=== PATIENT | male | born 1945 | race African-American/Black ===

== ENCOUNTER 2017-03-09 07:25 | Emergency (ER) | payer MEDICARE, MEDICAID ==
[~2017-03-09] VITALS: Ht 177.8 cm; Wt 75.0 kg
[~2017-03-09 07:25] MED LIST: ADALAT CC30 MG OR; AMOXICILLIN/CL875 MG PO; AMOXICILLIN500 MG PO; ATENOLOL25 MG PO; ATENOLOL50 MG PO; AUGMENTIN875 MG OR; CIPRO500 MG OR; COLACE100 MG PO; FLUARIX QUADRIV1 INJ IM; HYDROCHLORO25 MG/TAB PO; HYDROCHLOROT12.5 MG PO; HYDROCHLOROT25 MG PO; HYDROCHLOROTH12.5 M1 PO; LASIX20 MG OR; LISINOP/HCTZ1 TA1 PO; LOSARTAN POT50 MG PO; NIFEDIPINE ER PO; NIFEDIPINE ER90 MG OR; NIFEDIPINE ER90 MG PO; PRILOSEC20 MG PO; PRILOSEC40 MG PO; PROCARDIA XL90 MG OR; SIMETHICONE80 M2 PO; VALTREX1 GM PO
[2017-03-09 07:30] VITALS: BP 150/78
[2017-03-09] MEDS ORDERED: PATANOL0.1 % OS (07:56)
[2017-03-09] MEDS ORDERED: GENTAMICIN15 ML/BTL OS (07:56)
[2017-03-09] MEDS ORDERED: (None)3.5 GM OS (07:56)
== END 2017-03-09 08:06 | disposition home or self-care (01) ==
LOC: ED 07:25
DX: H01.005 Unspecified blepharitis left lower eyelid (principal); H01.004 Unspecified blepharitis left upper eyelid; I10 Essential (primary) hypertension

== ENCOUNTER 2018-11-27 15:27 | Emergency (ER) | payer MEDICARE, MEDICAID ==
[~2018-11-27] VITALS: Ht 177.8 cm; Wt 77.2 kg
[~2018-11-27 15:27] MED LIST changes: +(None)3.5 GM OS; +GENTAMICIN15 ML/BTL OS; +PATANOL0.1 % OS
[2018-11-27] MEDS ORDERED: DOXAZOSIN4 MG PO (15:39)
[2018-11-27] MEDS ORDERED: HYDROCHLOROT25 MG PO (15:39)
[2018-11-27] MEDS ORDERED: OFLOXACIN0.3 % OS (15:40)
[2018-11-27 15:41] VITALS: BP 138/78
== END 2018-11-27 15:41 | disposition home or self-care (01) ==
LOC: ED 15:27
DX: H10.9 Unspecified conjunctivitis (principal); I10 Essential (primary) hypertension

== ENCOUNTER 2019-01-24 11:39 | Emergency (ER) | payer MEDICARE, MEDICAID ==
[~2019-01-24] VITALS: Ht 177.8 cm; Wt 80.0 kg
[~2019-01-24 11:39] MED LIST changes: +DOXAZOSIN4 MG PO; +OFLOXACIN0.3 % OS
[2019-01-24 12:14] LABS: HEMATOCRIT 38.7 % (39.0-50.0); IMMATURE GRANULOCYTES 0.1 % (0.0-5.0); MEAN CELL VOLUME 99.7 fL CALC (80.0-100.0); MEAN CORPUSCULAR HGB 33.5 pG CALC (26.0-32.0); MEAN CORPUSCULAR HGB CONC 33.6 g/L CALC (32.0-36.0); NEUT# 2.53 thou/uL (1.82-7.42); RED BLOOD COUNT 3.88 mill/uL (4.70-6.10); RED CELL DISTRI WIDTH 13.1 % (11.5-15.5)
[2019-01-24 12:26] LABS: ALBUMIN 4.4 g/dL (3.2-5.0); ALKALINE PHOSPHATASE 98 u/l (38-126); ANION GAP 15 (6-22 (CALC)); BUN 8 mg/dL (8-23); BUN/CREATININE RATIO 9 (12-20 (CALC)); CARBON DIOXIDE 26 mmol/l (22-30); CHLORIDE 104 mmol/l (95-108); CREATININE 0.8 mg/dL (0.7-1.3); GFR > 60 ML/MIN (>=60 (CALC)); GFR FOR AFR.AMER. > 60 ML/MIN (>=60 (CALC)); POTASSIUM 3.3 mmol/l (3.5-5.1); SGOT/AST 25 u/l (19-48); SODIUM 142 mmol/l (137-146); TOTAL PROTEIN 7.8 g/dL (6.3-8.2)
[2019-01-24 12:29] LABS: BILIRUBIN, TOTAL 0.6 mg/dL (0.0-1.4)
[2019-01-24 13:43] VITALS: BP 170/75
== END 2019-01-24 13:43 | disposition home or self-care (01) ==
LOC: ED 11:39
PROVIDERS: Emergency Medicine
DX: T67.5XXA Heat exhaustion, unspecified, initial encounter (principal); I10 Essential (primary) hypertension; X30.XXXA Exposure to excessive natural heat, initial encounter

== ENCOUNTER 2020-11-16 08:41 | Emergency (ER) | payer MEDICARE, MEDICAID ==
[2020-11-16] MEDS ORDERED: ULTRAM50 MG PO (09:00)
[2020-11-16] MEDS ORDERED: MEDDOSEPAK PO (09:00)
[2020-11-16 09:13] VITALS: BP 173/64
[2021-01-31] MEDS ORDERED: DOXAZOSIN4 MG PO (09:14)
== END 2020-11-16 09:16 | disposition home or self-care (01) ==
LOC: ED 08:41
DX: M54.31 Sciatica, right side (principal); I10 Essential (primary) hypertension

== ENCOUNTER 2021-02-05 08:45 | Day surgery (SDC) | payer MEDICARE, MEDICAID ==
[~2021-02-05 08:45] MED LIST changes: +MEDDOSEPAK PO; +ULTRAM50 MG PO
[2021-02-05 11:21] VITALS: BP 114/56
--- NOTE | 2021-02-05 14:38 | NUR ---
PER PHYSICIAN, PATIENT NOTIFIED OF COLONOSCOPY RESULTS PER REPORT, PATIENT AGREED WITH INFORMATION PROVIDED, STATES DOING WELL FOLLOWING PROCEDURE, NO CONCERNS VOICED, AND THANKED MD FOR MEDICAL CARE. ADVISED TO CALL OFFICE NEEDED, REPORT FORWARDED TO PCP FOR CONTINUITY OF CARE, AND REPEAT COLONOSCOPY X 5 YEARS OR SOONER IF NEEDED. PATIENT AGREED.
== END 2021-02-05 11:26 | disposition home or self-care (01) ==
LOC: ENDO 08:45
PROVIDERS: ATTEND Surgery
PROC: 0DJD8ZZ Inspection of Lower Intestinal Tract, Via Natural or Artificial Opening Endoscopic (ICD-10-PCS; principal; 2021-02-05)
DX: Z12.11 Encounter for screening for malignant neoplasm of colon (principal); I10 Essential (primary) hypertension; H35.00 Unspecified background retinopathy

== ENCOUNTER 2023-01-17 15:00 | Emergency (ER) | payer MEDICARE, MEDICAID ==
[2023-01-17] VITALS (26 sets, daily range): BP systolic 142–188; BP diastolic 66–89
[~2023-01-17] VITALS: Ht 177.8 cm; Wt 90.0 kg
[2023-01-17 15:55] LABS: BASO% 0.9 % (0-3); EOS% 1.3 % (0-8); HEMATOCRIT 39.4 % (39.0-50.0); HEMOGLOBIN 13.1 g/dl (14.0-18.0); IMMATURE GRANULOCYTES 0.3 % (0.0-5.0); MEAN CELL VOLUME 101.5 fL CALC (80.0-100.0); MEAN CORPUSCULAR HGB 33.8 pG CALC (26.0-32.0); MEAN CORPUSCULAR HGB CONC 33.2 g/dL CAL (32.0-36.0); MONO% 9.1 % (2-13); NEUT# 3.78 thou/uL (1.82-7.42); NEUT% 47.4 % (42-76); RED BLOOD COUNT 3.88 mill/uL (4.70-6.10); RED CELL DISTRI WIDTH 12.5 % (11.5-15.5)
[2023-01-17 16:05] LABS: ALBUMIN 4.5 g/dL (3.2-5.0); ALKALINE PHOSPHATASE 90 u/l (38-126); ANION GAP 16 (6-22 (CALC)); BILIRUBIN, TOTAL 0.5 mg/dL (0.2-1.3); BUN 5 mg/dL (8-23); BUN/CREATININE RATIO 7 (12-20 (CALC)); CARBON DIOXIDE 26 mmol/l (22-30); CHLORIDE 100 mmol/l (95-108); CREATININE 0.7 mg/dL (0.7-1.3); GFR FOR AFR.AMER. > 60 ML/MIN (>=60 (CALC)); GFR OTHER RACES > 60 ML/MIN (>=60 (CALC)); LIPASE 42 u/l (23-300); SGOT/AST 27 u/l (19-48); SODIUM 139 mmol/l (137-146); TOTAL PROTEIN 7.7 g/dL (6.3-8.2)
[2023-01-17 16:06] LABS: POTASSIUM 3.1 mmol/l (3.5-5.1)
[2023-01-17 17:58] LABS: URINE BILIRUBIN - DIPSTICK NEGATIVE (NEGATIVE); URINE BLOOD DIPSTICK TRACE-INTACT (NEGATIVE); URINE COLOR YELLOW; URINE GLUCOSE - DIPSTICK NEGATIVE (NEGATIVE); URINE KETONE NEGATIVE (NEGATIVE); URINE LEUK ESTERASE NEGATIVE (NEGATIVE); URINE PROTEIN - DIPSTICK NEGATIVE (NEG-TRACE); URINE SPECIFIC GRAVITY <=1.005; URINE UROBILINOGEN - DIPSTICK 0.2 E.U./dL (0.2)
[2023-01-17 18:00] LABS: URINE NITRITE - DIPSTICK NEGATIVE (Negative)
== END 2023-01-17 21:37 | disposition home or self-care (01) ==
LOC: ED 15:00
PROVIDERS: Family Medicine
DX: R10.9 Unspecified abdominal pain (principal); R07.9 Chest pain, unspecified; I10 Essential (primary) hypertension